=== PATIENT | female | born 2000 | race Caucasian/White ===

== ENCOUNTER → 2021-01-30 12:13 | Observation (INO) ==
[2021-01-30 11:41] VITALS: BP 120/68
== END | disposition home health service (06) ==
LOC: 1NENULAB
PROVIDERS: ADMIT Obstetrics & Gynecology; ATTEND Obstetrics & Gynecology

== ENCOUNTER → 2021-02-02 22:00 | Observation (INO) ==
[2021-02-02 21:22] LABS: Clarity,Urine Clear (Clear); Color,Urine Colorless (Yellow); Glucose,Urine (UA) Normal (Normal)
[2021-02-02 21:23] LABS: Bilirubin,Urine Negative (Negative); Blood,Urine Trace (Negative); Ketones,Urine 20 mg/dL (Negative); PH,Urine 6.5 pH Units (5.0-8.0); Protein,Urine Trace mg/dL (Neg-Trace); Specific Gravity,Urine 1.015 (1.010-1.025)
[2021-02-02 21:24] LABS: Leukocyte Esterase,Urine Trace (Negative); Nitrite,Urine Negative (Negative); Urobilinogen,Urine Normal (Normal)
[2021-02-02 21:25] LABS: Bacteria,Urine Few per hpf (None-Few); Squamous Epithelial Cell,Urine Few per hpf (None-Few)
== END | disposition home or self-care (01) ==
LOC: 1NENULAB
PROVIDERS: ADMIT Obstetrics & Gynecology; ATTEND Obstetrics & Gynecology

== ENCOUNTER 2021-04-03 21:43 | Observation (INO) ==
[2021-04-03 22:21] LABS: Bilirubin,Urine Negative (Negative); Blood,Urine Moderate (Negative); Clarity,Urine Ex.Turbid (Clear); Color,Urine Red (Yellow); Glucose,Urine (UA) Normal (Normal); Ketones,Urine Negative (Negative); Leukocyte Esterase,Urine Negative (Negative); Nitrite,Urine Negative (Negative); PH,Urine 6.5 pH Units (5.0-8.0); Protein,Urine 50 mg/dL (Neg-Trace); Specific Gravity,Urine 1.025 (1.010-1.025); Urobilinogen,Urine Normal (Normal)
[2021-04-03] MEDS ORDERED: Betamethasone Acet/SodPhos 30 MG/5 ML VIAL IM SCH (22:30)
[2021-04-03] MEDS ORDERED: Terbutaline 1 MG/ML VIAL SQ ONE ×2 (23:05→23:10)
[2021-04-04] MEDS ORDERED: metroNIDAZOLE 500 MG TABLET PO ONE (00:52)
== END 2021-04-04 01:15 | disposition home or self-care (01) ==
LOC: 1NENULAB
PROVIDERS: ADMIT Advanced Practice Midwife; ATTEND Advanced Practice Midwife

== ENCOUNTER → 2021-04-05 03:42 | Observation (INO) | END | disposition home or self-care (01) | LOC: 1NENULAB | PROVIDERS: ADMIT Obstetrics & Gynecology; ATTEND Obstetrics & Gynecology ==

== ENCOUNTER 2021-05-11 23:38 | Inpatient (IN) ==
[~2021-05-11 23:38] MED LIST: *HR* FentaNYL (PF) 100 MCG/2 ML VIAL EP ONE; EPHEDrine 50 MG/ML VIAL IVP PRN; Epidural Premix (fent/bupiv) 110 ML EP SCH; Famotidine 20 MG/2 ML VIAL IVP PRN; Metoclopramide 10 MG/2 ML VIAL IVP PRN; Naloxone 0.4 MG/ML INJ IVP PRN; Ondansetron 4 MG/2 ML VIAL IVP PRN; Ropivacaine/PF 0.2% 20 ML VIAL EP ONE
[2021-05-11] MEDS ORDERED: Oxytocin 20 units/ LR 1000 mL 20 UNIT/1,000 ML BAG IVC SCH (23:45)
[2021-05-11] MEDS ORDERED: Ringers Solution, Lactated 1,000 ML IVC SCH (23:45)
[2021-05-12 01:28] LABS: Basophils % 0.2 %; Eosinophils # 0.1 K/mcL (0.0-0.6); Eosinophils % 0.7 %; Hematocrit 39.2 % (35.3-44.9); Hemoglobin 12.3 g/dL (11.5-15.4); Immature Granulocytes % 0.6 % (0-4); Lymphocytes # 2.9 K/mcL (0.6-4.6); Lymphocytes % 21.3 %; Mean Corpuscular HGB Conc 31.4 g/dL (31.6-35.5); Mean Corpuscular Hemoglobin 27.9 pg (28.0-33.3); Mean Corpuscular Volume 88.9 fL (83.0-100.0); Mean Platelet Volume 11.4 fL (9.4-12.4); Monocytes # 1.1 K/mcL (0.0-1.3); Monocytes % 7.8 %; Neutrophils # 9.6 K/mcL (1.6-8.9); Platelet Count 326 K/mcL (140-400); Red Blood Count 4.41 M/mcL (3.82-4.97); Red Cell Distribution Width 13.2 % (11.5-14.5); Segmented Neutrophils % 69.4 %; White Blood Count 13.8 K/mcL (4.3-11.1)
[2021-05-12 01:46] LABS: Amphetamine Screen,Urine Negative ng/mL (Cutoff=1000)
[2021-05-12 01:47] LABS: Barbiturate Screen,Urine Negative ng/mL (Cutoff=200); Benzodiazepines Screen,Urine Negative ng/mL (Cutoff=200); Cannabinoid Screen,Urine Negative ng/mL (Cutoff = 50); Cocaine Screen,Urine Negative ng/mL (Cutoff= 300); Opiate Screen,Urine Negative ng/mL (Cutoff=300); Phencyclidine Screen,Urine Negative ng/mL (Cutoff=25)
[2021-05-12] MEDS ORDERED: *HR* Nalbuphine 10 MG/ML AMPUL IV PRN (02:15)
[2021-05-12] MEDS ORDERED: Lidocaine 1% 20 ML MDV ONE (20:26)
[2021-05-12] MEDS ORDERED: Oxytocin 20 units/ LR 1000 mL 20 UNIT/1,000 ML BAG IVC SCH (21:24)
[2021-05-12] MEDS ORDERED: Lanolin 7 G OINT...G. TP PRN (21:24)
[2021-05-12] MEDS ORDERED: Measles/Mumps/Rubella Vacc 0.5 ML VIAL SQ PRN (21:24)
[2021-05-12] MEDS ORDERED: Benzocaine/Menthol 56 GM AEROSOL SPRAY TP PRN (21:24)
[2021-05-12] MEDS ORDERED: Oxytocin 20 units/ LR 1000 mL 20 UNIT/1,000 ML BAG IVC ONE (21:24)
[2021-05-12] MEDS ORDERED: Sennosides 8.6 MG TABLET PO PRN (21:24)
[2021-05-12] MEDS ORDERED: Rho Immune Globulin 1,500 UNIT SYRINGE IM PRN (21:24)
[2021-05-12] MEDS: Acetaminophen 325 MG TABLET PO SCH (22:45)
[2021-05-13] MEDS: Ibuprofen 600 MG TABLET PO SCH ×4 (01:15→18:53)
[2021-05-13] MEDS: cephALEXin 500 MG CAPSULE PO SCH ×3 (01:16→20:20)
[2021-05-13 04:33] LABS: Basophils % 0.2 %
[2021-05-13 04:34] LABS: Basophils # 0.1 K/mcL (0.0-0.2); Hematocrit 30.1 % (35.3-44.9); Hemoglobin 10.3 g/dL (11.5-15.4); Immature Granulocytes % 0.6 % (0-4); Lymphocytes # 1.7 K/mcL (0.6-4.6); Lymphocytes % 5.8 %; Mean Corpuscular HGB Conc 34.2 g/dL (31.6-35.5); Mean Corpuscular Hemoglobin 29.3 pg (28.0-33.3); Mean Corpuscular Volume 85.8 fL (83.0-100.0); Monocytes # 2.7 K/mcL (0.0-1.3); Monocytes % 8.9 %; Platelet Count 275 K/mcL (140-400); Red Blood Count 3.51 M/mcL (3.82-4.97); Red Cell Distribution Width 13.2 % (11.5-14.5); Segmented Neutrophils % 84.5 %; White Blood Count 29.9 K/mcL (4.3-11.1)
[2021-05-13 04:37] LABS: Neutrophils # 25.3 K/mcL (1.6-8.9)
[2021-05-13 04:56] LABS: Platelet Estimate Normal (Normal)
[2021-05-13] MEDS: Acetaminophen 325 MG TABLET PO SCH ×3 (06:19→18:53)
[2021-05-13] MEDS: Prenatal Vit/FA 1 EACH TABLET PO SCH (08:48)
[2021-05-13] MEDS ORDERED: NON-FORMULARY MEDICATION 1 EACH EACH (Prenatal Vitamin Tablet 1 TAB) PO SCH (09:00)
[2021-05-13] MEDS ORDERED: NON-FORMULARY MEDICATION 1 EACH EACH (Ferrous Sulfate 1 TAB) PO SCH (09:00)
[2021-05-14] MEDS: Acetaminophen 325 MG TABLET PO SCH ×2 (00:15→05:45)
[2021-05-14] MEDS: Ibuprofen 600 MG TABLET PO SCH ×3 (00:15→10:20)
[2021-05-14 05:05] LABS: Basophils % 0.2 %; Eosinophils # 0.2 K/mcL (0.0-0.6); Eosinophils % 0.9 %; Hemoglobin 9.6 g/dL (11.5-15.4); Immature Granulocytes % 0.6 % (0-4); Lymphocytes # 3.8 K/mcL (0.6-4.6); Lymphocytes % 17.8 %; Mean Corpuscular HGB Conc 33.1 g/dL (31.6-35.5); Mean Corpuscular Hemoglobin 29.2 pg (28.0-33.3); Mean Corpuscular Volume 88.1 fL (83.0-100.0); Monocytes # 1.1 K/mcL (0.0-1.3); Neutrophils # 16.2 K/mcL (1.6-8.9); Platelet Count 306 K/mcL (140-400); Red Blood Count 3.29 M/mcL (3.82-4.97); Red Cell Distribution Width 13.7 % (11.5-14.5); Segmented Neutrophils % 75.5 %; White Blood Count 21.4 K/mcL (4.3-11.1)
[2021-05-14 08:12] VITALS: BP 110/62; PULSE 86; TEMP 97.9; O2SAT 96
[2021-05-14] MEDS: Prenatal Vit/FA 1 EACH TABLET PO SCH (10:19)
[2021-05-14] MEDS: cephALEXin 500 MG CAPSULE PO SCH (10:20)
== END 2021-05-14 12:45 | disposition home or self-care (01) | DRG 768 ==
LOC: 1NENULAB → 1NENUOBS 05-13 00:34
PROVIDERS: ADMIT Obstetrics & Gynecology; ATTEND Obstetrics & Gynecology